=== PATIENT | female | born 1990 | race Caucasian/White ===

== ENCOUNTER 2017-04-24 11:45 | Inpatient (IN) | payer OTHER ==
[~2017-04-24] VITALS: Ht 170.2 cm; Wt 96.2 kg
[~2017-04-24 11:45] MED LIST: ZITHROMAX PO
[2017-05-11] MEDS ORDERED: PRENATAL TABLE1 EAC1 PO (06:43)
[2017-05-13] MEDS ORDERED: Dermoplast SPRAY TOP (11:44)
[2017-05-13] MEDS ORDERED: IBUPROFEN600 MG PO (11:44)
== END 2017-05-13 11:58 | DRG 775 ==
LOC: SURH 05-05 11:45 → OB/GYN 05-11 05:55 → LDR 05-11 05:55 → OB/GYN 05-11 16:34
PROC: 0UQGXZZ Repair Vagina, External Approach (ICD-10-PCS; principal; 2017-05-11)
PROC: 10E0XZZ Delivery of Products of Conception, External Approach (ICD-10-PCS; 2017-05-11)
PROC: 4A1HXCZ Monitoring of Products of Conception, Cardiac Rate, External Approach (ICD-10-PCS; 2017-05-11)
PROC: 3E033VJ Introduction of Other Hormone into Peripheral Vein, Percutaneous Approach (ICD-10-PCS; 2017-05-11)
DX: O71.82 Other specified trauma to perineum and vulva (principal); O48.0 Post-term pregnancy; Z3A.40 40 weeks gestation of pregnancy; Z37.0 Single live birth

== ENCOUNTER → 2017-04-27 | Outpatient (CLI) | payer OTHER | END | disposition home or self-care (01) | LOC: OBS/DEL 15:54 | DX: O47.1 False labor at or after 37 completed weeks of gestation (principal); Z34.83 Encounter for supervision of other normal pregnancy, third trimester ==